=== PATIENT | female | born 1960 | race Caucasian/White ===

== ENCOUNTER 2016-12-11 14:11 | Emergency (ER) | payer SELFPAY ==
[~2016-12-11] VITALS: Ht 165.1 cm; Wt 62.7 kg
[2016-12-11 14:16] VITALS: TEMP 36.5; Ht 165.1 cm; Wt 62.7 kg
--- NOTE | 2016-12-11 15:38 | DIAGNOSTIC IMAGING REPORT ---
CHEST ONE VIEW PORTABLE CLINICAL HISTORY: Cough. COMPARISON STUDY: No previous studies for comparison. FINDINGS: Lung volumes are normal. There is no pneumothorax or pleural effusion. Cardiac size is normal. Mediastinal contours are normal. There is no evidence of pulmonary edema. IMPRESSION: No acute cardiopulmonary findings. Electronically signed by: Vidal Donohue M.D. 12/11/2016 3:37 PM Dictated Date/Time: 12/11/2016 3:37 PM
[2016-12-11 16:03] LABS: BASO ABS # 0.05 K/uL (0-0.2); COMPLETE YES; EOS % 3.7 %; HEMATOCRIT 38.9 % (37-47); IG% 0.2 %; LYMPH % 32.2 %; LYMPH ABS # 1.56 K/uL (1.2-3.4); MEAN CELL VOLUME 87.8 fL (80-100); MEAN CORPUSCULAR HEMOGLOBIN 29.8 pg (25-34); MEAN CORPUSCULAR HGB CONC 33.9 g/dl (32-36); MEAN PLATELET VOLUME 11.3 fL (7.4-10.4); MONO % 9.5 %; NEUT % 53.4 %; PLATELET COUNT 200 K/uL (130-400); RED BLOOD COUNT 4.43 M/uL (4.2-5.4); WHITE BLOOD COUNT 4.85 K/uL (4.8-10.8)
--- NOTE | 2016-12-11 16:14 | EMERGENCY ROOM VISIT NOTE ---
History First contact with patient: 14:49 Chief Complaint: RESPIRATORY PROBLEMS Stated Complaint: PAIN W/BREATHING, TAKING DEEP BREATH, COUGH Nursing Triage Summary: Patient reports productive cough state of small amount of clear sputum, also has headache and sinus congestion. History of pnuemonia Patient sent for evaluation for PE History of Present Illness The patient is a 56 year old female who presents to the Emergency Room via private vehicle with complaints of "pain with breathing, taking deep breath, cough". 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 She states that yesterday afternoon she woke up and it was painful to take a deep breath in the epigastric region in between his shoulder blades. She states that she went to the [facility] walk- in clinic yesterday evening for a chest x-ray was performed and was normal. She states the cough completed performed blood work such as a d-dimer but did not at that time. She states that she woke up her cough was worse today and talk with them and decided to come here for further evaluation for potential pulmonary embolism. She has also had headaches recently but this is not uncommon for her. She notes this is not the worst headache of her life. She denies any pain at rest. The pain is only with a deep breath. She has an innocent heart murmur but no other cardiac history. She did have an episode of chest pain and shortness of breath yesterday. She denies any urinary symptoms, or history, fevers, chills, abdominal pain. Review of Systems A complete 10-point Review of Systems was discussed with the patient, with pertinent positives and negatives listed in the History of Present Illness. All remaining Review of Systems questions can be considered negative unless otherwise specified. Past Medical/Surgical History Tendency of UTI. Family History Cancer, seizure, alcoholism Social History Smoking Status: Never Smoker Alcohol Use: none Social History: Patient lives at home with daughter, denies tobacco but admits to rare alcohol use. Current/Historical Medications No Active Prescriptions or Reported Meds Allergies Coded Allergies: No Known Allergies (Verified , 12/11/16) Physical Exam Vital Signs Date Time Temp Pulse Resp B/P Pulse Ox O2 Delivery O2 Flow Rate FiO2 12/11/16 17:05 62 16 130/86 97 Room Air 12/11/16 15:55 69 18 111/93 98 Room Air 12/11/16 14:25 96 Room Air 12/11/16 14:16 36.5 88 20 148/71 96 Room Air Physical Exam VITAL SIGNS - Vital signs and nursing notes were reviewed. Patient is afebrile , normotensive, non-tachycardic and saturating well on room air 96%. GENERAL -56-year-old female appearing her stated age who is in no acute distress. The patient is talking quite fast. Communicates well with provider and answers questions appropriately. SKIN - Without rashes. HEAD - NC/AT. EYES - PERRL with EOMI bilaterally. Sclera anicteric. Palpebral conjunctiva pink and moist with no injection noted. EARS - No deformities of external structures noted on gross examination bilaterally. No pain elicited with palpation of the tragus bilaterally. External auditory canals without discharge or otorrhea. Tympanic membranes pearly thomas without retraction or bulging. No fluid or purulent material visualized behind the TM. Handle of malleus, umbo, cone of light, pars tensa/ flaccid all easily visualized. NOSE - Midline and without cyanosis. No epistaxis or purulent drainage noted. Septum midline without deviation or septal hematoma noted. MOUTH/OROPHARYNX - Without perioral cyanosis. Buccal mucosa pink and moist and without leukoplakia. Tongue midline with equal elevation of palate bilaterally. No tonsillar hypertrophy, erythema, or exudates noted. Good dentition noted. NECK - Neck with FROM. Supple to palpation. No lymphadenopathy noted. No nuchal rigidity. LUNGS - Chest wall symmetric without accessory muscle use, intercostals retractions, or central cyanosis. Normal vesicular breath sounds CTA B/L. No wheezes, rales, or rhonchi appreciated. CARDIAC - RRR with S1/S2. No murmur, rubs, or gallops appreciated. No reproducible pain on palpation in the chest or back. ABDOMEN - Abdominal contour without pulsations or visible masses. BS normoactive all four quadrants. No tenderness, palpable masses, hepatosplenomegaly, or ascites noted. EXTREMITIES - No clubbing or peripheral cyanosis. No pretibial edema present. + 5/5 strength noted in UE/LE bilaterally. NEUROLOGIC - Cranial nerves II through XII grossly intact. Sensory intact to light touch throughout. PSYCH - A&Ox3 and cooperates fully with examiner. Pt is very pleasant and interacts well with examiner. Medical Decision & Procedures ER Provider Diagnostic Interpretation: CHEST ONE VIEW PORTABLE CLINICAL HISTORY: Cough. COMPARISON STUDY: No previous studies for comparison. FINDINGS: Lung volumes are normal. There is no pneumothorax or pleural effusion. Cardiac size is normal. Mediastinal contours are normal. There is no evidence of pulmonary edema. IMPRESSION: No acute cardiopulmonary findings. Electronically signed by: Vidal Donohue M.D. 12/11/2016 3:37 PM Dictated Date/Time: 12/11/2016 3:37 PM Laboratory Results 12/11/16 15:50 Red Blood Count 4.43, Mean Corpuscular Volume 87.8, Mean Corpuscular Hemoglobin 29.8, Mean Corpuscular Hemoglobin Concent 33.9, Mean Platelet Volume 11.3, Neutrophils (%) (Auto) 53.4, Lymphocytes (%) (Auto) 32.2, Monocytes (%) (Auto) 9.5, Eosinophils (%) (Auto) 3.7, Basophils (%) (Auto) 1.0, Neutrophils # (Auto) 2.59, Lymphocytes # (Auto) 1.56, Monocytes # (Auto) 0.46, Eosinophils # (Auto) 0.18, Basophils # (Auto) 0.05 12/11/16 15:50 Test 12/11/16 15:50 12/11/16 15:55 White Blood Count 4.85 K/uL (4.8-10.8) Red Blood Count 4.43 M/uL (4.2-5.4) Hemoglobin 13.2 g/dL (12.0-16.0) Hematocrit 38.9 % (37-47) Mean Corpuscular Volume 87.8 fL (80-100) Mean Corpuscular Hemoglobin 29.8 pg (25-34) Mean Corpuscular Hemoglobin Concent 33.9 g/dl (32-36) Platelet Count 200 K/uL (130-400) Mean Platelet Volume 11.3 fL (7.4-10.4) Neutrophils (%) (Auto) 53.4 % Lymphocytes (%) (Auto) 32.2 % Monocytes (%) (Auto) 9.5 % Eosinophils (%) (Auto) 3.7 % Basophils (%) (Auto) 1.0 % Neutrophils # (Auto) 2.59 K/uL (1.4-6.5) Lymphocytes # (Auto) 1.56 K/uL (1.2-3.4) Monocytes # (Auto) 0.46 K/uL (0.11-0.59) Eosinophils # (Auto) 0.18 K/uL (0-0.5) Basophils # (Auto) 0.05 K/uL (0-0.2) RDW Standard Deviation 40.9 fL (36.4-46.3) RDW Coefficient of Variation 12.7 % (11.5-14.5) Immature Granulocyte % (Auto) 0.2 % Immature Granulocyte # (Auto) 0.01 K/uL (0.00-0.02) Anion Gap 8.0 mmol/L (3-11) Est Creatinine Clear Calc Drug Dose 52.0 ml/min Estimated GFR () 65.5 Estimated GFR (Non- 56.5 BUN/Creatinine Ratio 14.0 (10-20) Calcium Level 9.3 mg/dl (8.5-10.1) Magnesium Level 2.2 mg/dl (1.8-2.4) Total Bilirubin 0.3 mg/dl (0.2-1) Aspartate Amino Transf (AST/SGOT) 30 U/L (15-37) Alanine Aminotransferase (ALT/SGPT) 39 U/L (12-78) Alkaline Phosphatase 60 U/L (45-117) Total Protein 7.6 gm/dl (6.4-8.2) Albumin 4.0 gm/dl (3.4-5.0) Globulin 3.6 gm/dl (2.5-4.0) Albumin/Globulin Ratio 1.1 (0.9-2) Thyroid Stimulating Hormone (TSH) 0.524 uIu/ml (0.300-4.500) Bedside D-Dimer 178 ng/mlFEU (0-450) Bedside Troponin I 0.000 ng/ml (0-0.045) Medical Decision Patient was seen and evaluated as above. After obtaining a thorough history and physical examination IV access was obtained and a CBC, CMP, serum hCG, TSH, magnesium, d-dimer, point care troponin. Chest 1 view was obtained. Patient most likely has a potential bronchitis. She seemed be exchanging air well as her vital signs were stable here in the emergency department. She states that she was seen yesterday for similar symptoms and they questioned doing a d-dimer and because it did not a potential PE workup could be had today. I believe this is reasonable. In review the patient's blood work, CBC is unremarkable, no leukocytosis or anemia, point care d-dimer is negative, CMP is unremarkable. Point care troponin is 0. TSH is normal. Chest x-ray results as above. No pneumonia. I do believe the patient is likely experiencing congestion secondary to a viral URI process potentially bronchitis. I do not think that an antibiotic is appropriate this point. Patient was educated upon findings and seemed happy with plan of care. She clinically appears well. I encouraged her to follow up with family doctor and I believe this can be CV IM. During her stay EKG revealed normal sinus rhythm rate of 64 bpm. No ectopy or ischemic change. She is to return with any worsening of her symptoms. She was educated upon today's findings, had questions prior to discharge, and was discharged home in good condition. In the evaluation and treatment this patient following differential diagnoses were entertained: [place], PE, bronchitis, pneumonia, among others. Patient appears very otherwise healthy. Vital signs were stable. I do not suspect any acute emergent process. Impression Primary Impression: Inspiratory pain Additional Impression: URI (upper respiratory infection) Departure Information Dispostion Home / Self-Care Condition GOOD Prescriptions No Active Prescriptions or Reported Meds Referrals No Doctor, Assigned (PCP) Patient Instructions My [facility] Additional Instructions You were seen in the emergency department for pain with deep breathing/taking a deep breath. Her blood work shows no sign of infection or anemia. Your d-dimer was within normal limits at 178. The normal is 0-450. You comprehensive metabolic panel did not show any elect to let abnormality, kidney abnormality, liver abnormality or thyroid abnormality. Your EKG and troponin here looked good. Please call [facility] and to schedule a follow-up appointment. Please return to the emergency department with any new/concerning symptoms. Problem Qualifiers Additional Impression:
[2016-12-11 16:26] LABS: CALCIUM 9.3 mg/dl (8.5-10.1); CREATININE 1.1 mg/dl (0.60-1.20); MAGNESIUM 2.2 mg/dl (1.8-2.4); POTASSIUM 3.7 mmol/L (3.5-5.1)
[2016-12-11 16:38] LABS: ALB/GLOB RATIO 1.1 (0.9-2); THYROID STIMULATING HORMONE 0.524 uIu/ml (0.300-4.500)
[2016-12-11 17:05] VITALS: BP 130/86; PULSE 62; O2SAT 97
== END 2016-12-11 17:13 | disposition home or self-care (01) ==
LOC: C.EDB 14:13
DX: J06.9 Acute upper respiratory infection, unspecified (principal)

== ENCOUNTER 2022-10-17 14:31 | Inpatient (IN) ==
[2022-10-17 15:05] LABS: Basophils # (auto) 0.05 K/uL (0-0.2); Basophils % (auto) 0.6 %; Eosinophils # (auto) 0.11 K/uL (0-0.50); Eosinophils % (auto) 1.4 %; Hematocrit (blood only) 37.9 % (34.1-44.9); Hemoglobin 13.1 g/dl (12.0-16.0); Immature Granulocytes # (auto) 0.02 K/uL (0.00-0.02); Immature Granulocytes % (auto) 0.3 %; Lymphocytes # (auto) 2.27 K/uL (1.2-3.4); Lymphocytes % (auto) 29.1 %; Mean Corpuscular Hemoglobin 30.4 pg (25.0-34.0); Mean Corpuscular Hgb Conc 34.6 g/dL (32.0-36.0); Mean Corpuscular Volume 87.9 fL (80.0-100.0); Mean Platelet Volume 12.3 fL (9.4-12.3); Monocytes # (auto) 0.59 K/uL (0.24-0.82); Monocytes % (auto) 7.6 %; Neutrophils # (auto) 4.76 K/uL (1.4-6.5); Platelet Count 233 K/uL (130-400); RDW Coefficient of Variation 12.1 % (11.5-14.5); RDW Standard Deviation 39.2 fL (36.4-46.3); Red Blood Count 4.31 M/uL (3.93-5.22)
[2022-10-17 15:26] LABS: Albumin Globulin Ratio 1.5 (0.9-2); Albumin Level 4.5 gm/dl (3.4-5.0); Bilirubin,Total 0.7 mg/dl (0.2-1.0); Calcium 9.3 mg/dl (8.5-10.1); Creatinine Clr Calc Pharmacy 71.8 ml/min; Est GFR (African American) 101.3 ml/min; Est GFR (Non-African American) 87.4 ml/min; Globulin 3.1 gm/dl (2.5-4.0); Potassium 3.5 mmol/L (3.5-5.1); Total Protein 7.6 gm/dl (6.0-8.3)
[2022-10-17 15:27] LABS: Acetaminophen < 3 ug/ml (10-30); Salicylate < 3.0 mg/dl (3.0-30)
[2022-10-17 15:28] LABS: Appearance Urine Cloudy (Clear); Bacteria Urine Automated 2+ (Negative); Bilirubin Urine Negative (Negative); Blood Urine Negative (Negative); Color Urine Dark Yellow; Glucose Urine UA Negative (Negative); Ketones Urine 2+ (Negative); Leukocyte Esterase Urine 1+ (Negative); Nitrite Urine Positive (Negative); Protein Urine Trace (Negative); Specific Gravity Urine 1.029 (1.000-1.030); Urobilinogen Urine Negative (Negative); WBC Urine Automated >30 /hpf (0-5)
[2022-10-17 16:01] LABS: Amphetamines+Metham, Urine Neg (Neg); Barbiturates, Urine Neg (Neg); Benzodiazepine, Urine Neg (Neg); Cocaine, Urine Neg (Neg); MDMA (Ecstacy), Urine Neg (Neg); Methadone, Urine Neg (Neg); Opiate, Urine Neg (Neg); Phencyclidine, Urine Neg (Neg)
--- NOTE | 2022-10-17 16:10 | Emergency Department Note ---
History of Present Illness General Chief complaint: Mental Health Evaluation Stated complaint: MHID Time Seen by Provider: 10/17/22 15:40 History of Present Illness 62-year-old female presents to the ED for mental health evaluation. The patient states that she has been depressed for years. It recently was worse although since her daughter came on Thursday, she is feeling better. Her daughter is from [place]. The patient, according to the daughter has not been taking care of her self. She had not bathed for weeks prior to her arrival. Her daughter feels that she is minimizing her symptoms. She does have some passive suicidal thoughts but has not acted on them.A 302 petition was filed by can help based on what the daughter had told them. Allergies Allergy/AdvReac Type Severity Reaction Status Date / Time No Known Allergies Allergy Verified 12/11/16 15:16 Past Med/Surg History Social History Smoking Status: Never smoker Feels Safe at Home: Yes Review of Systems A total of 10 systems reviewed and were otherwise negative Physical Exam Vital Signs Vital Signs - 24 hr 10/17/22 14:54 10/17/22 15:01 10/17/22 17:31 Temperature 36.9 C 36.9 C Temperature Source Oral Oral Pulse Rate 126 H Pulse Rate [Finger] 126 H 93 H Pulse Strength [Finger] Normal Respiratory Rate 20 19 19 Respiratory Effort / Characteristics Non-Labored Spontaneous Non-Labored Spontaneous Respiratory Depth Normal Normal Respiratory Pattern Regular Blood Pressure [Left Arm] 145/111 H 144/99 H Blood Pressure Mean [Left Arm] 122 114 Pulse Oximetry 95 100 Oxygen Delivery Method Room Air Room Air Sepsis Recent Fever Within 48 Hours No Sepsis New/Unexplained Change in Mental Status No Sepsis Action Taken by Nursing No Action Required CONSTITUTIONAL/VITAL SIGNS: Reviewed / noted above. GENERAL: Non-toxic in appearance. INTEGUMENTARY: Warm, dry, and [place]. HEAD: Normocephalic. EYES: without scleral icterus or trauma. ENT/OROPHARYNX: clear and moist. LYMPHADENOPATHY/NECK: Is supple without lymphadenopathy or meningismus. RESPIRATORY: Clear to auscultation bilaterally. No increased work of breathing. CARDIOVASCULAR: Regular rate and rhythm. GI/ABDOMEN: Soft and nontender. No organomegaly or pulsatile mass. EXTREMITIES: Warm and well perfused. BACK: No CVA tenderness. NEUROLOGICAL: Intact without focal deficits. PSYCHIATRIC: normal affect. MUSCULOSKELETAL: Normally developed with good muscle tone. TRIAGE NURSING DOCUMENTATION REVIEWED. Medical Decision Making Differential Diagnosis Differential includes toxic ingestions, self-mutilation, suicidal ideation, suicide attempt, depression. Medical Records Attestation: I reviewed the patient's medical records. Home Medications Current Medication List: was personally reviewed by me Laboratory Data Attestation: I reviewed the patient's lab results. Result diagrams: 10/17/22 14:49 10/17/22 14:49 Lab Results 10/17/22 10/17/22 10/17/22 Range/Units 14:33 14:33 14:49 WBC 7.80 (4.8-10.8) K/ul RBC 4.31 (3.93-5.22) M/uL Hgb 13.1 (12.0-16.0) g/dl Hct 37.9 (34.1-44.9) % MCV 87.9 (80.0-100.0) fL MCH 30.4 (25.0-34.0) pg MCHC 34.6 (32.0-36.0) g/dL RDW Std Deviation 39.2 (36.4-46.3) fL RDW Coeff of Unique 12.1 (11.5-14.5) % Plt Count 233 (130-400) K/uL MPV 12.3 (9.4-12.3) fL Immature Gran % (Auto) 0.3 % Neut % (Auto) 61.0 % Lymph % (Auto) 29.1 % [place] % (Auto) 7.6 % Eos % (Auto) 1.4 % Baso % (Auto) 0.6 % Neut # (Auto) 4.76 (1.4-6.5) K/uL Lymph # (Auto) 2.27 (1.2-3.4) K/uL [place] # (Auto) 0.59 (0.24-0.82) K/uL Eos # (Auto) 0.11 (0-0.50) K/uL Baso # (Auto) 0.05 (0-0.2) K/uL Immature Gran # (Auto) 0.02 (0.00-0.02) K/uL Sodium (136-145) mmol/L Potassium (3.5-5.1) mmol/L Chloride (98-107) mmol/L Carbon Dioxide (21-32) mmol/L Anion Gap (3-11) BUN (6-23) mg/dl Creatinine (0.6-1.2) mg/dl Est Cr Clr Drug Dosing ml/min Est GFR ( Amer) ml/min Est GFR (Non-Af Amer) ml/min BUN/Creatinine Ratio (10-20) Glucose (70-99(Fasting)) mg/dl Calcium (8.5-10.1) mg/dl Total Bilirubin (0.2-1.0) mg/dl AST (13-39) U/L ALT (7-52) U/L Alkaline Phosphatase (34-104) U/L Total Protein (6.0-8.3) gm/dl Albumin (3.4-5.0) gm/dl Globulin (2.5-4.0) gm/dl Albumin/Globulin Ratio (0.9-2) TSH (0.300-4.500) uIu/ml Urine Color Dark Yellow Urine Appearance Cloudy A (Clear) Urine pH 5.0 (4.5-7.5) Ur Specific [place] 1.029 (1.000-1.030) Urine Protein Trace H (Negative) Urine Glucose (UA) Negative (Negative) Urine Ketones 2+ H (Negative) Urine Blood Negative (Negative) Urine Nitrite Positive A (Negative) Urine Bilirubin Negative (Negative) Urine Urobilinogen Negative (Negative) Ur Leukocyte Esterase 1+ H (Negative) Urine WBC (Auto) >30 H (0-5) /hpf Urine RBC (Auto) 5-10 H (0-4) /hpf U Hyaline Cast (Auto) 1-5 (0-5) /lpf U Epithel Cells (Auto) 10-20 H (0-5) /lpf Urine Bacteria (Auto) 2+ H (Negative) Urine Crystals Not Reportable Calcium Oxalate Crystal Present A (None Prsent) Salicylates (3.0-30) mg/dl Urine Opiates Screen Neg (Neg) Ur Methadone, Qual Neg (Neg) Acetaminophen (10-30) ug/ml Urine Barbiturates Neg (Neg) Ur Phencyclidine (PCP) Neg (Neg) U Amphetamin/Meth Scrn Neg (Neg) MDMA (Ecstasy) Screen Neg (Neg) U Benzodiazepines Scrn Neg (Neg) Ur Cocaine Metabolite Neg (Neg) U Marijuana (THC) Screen Neg (Neg) Ethyl Alcohol mg/dL (<10.0) mg/dl SARS-CoV-2, RNA, NAAT (NEGATIVE) 10/17/22 10/17/22 10/17/22 Range/Units 14:49 14:49 14:49 WBC (4.8-10.8) K/ul RBC (3.93-5.22) M/uL Hgb (12.0-16.0) g/dl Hct (34.1-44.9) % MCV (80.0-100.0) fL MCH (25.0-34.0) pg MCHC (32.0-36.0) g/dL RDW Std Deviation (36.4-46.3) fL RDW Coeff of Unique (11.5-14.5) % Plt Count (130-400) K/uL MPV (9.4-12.3) fL Immature Gran % (Auto) % Neut % (Auto) % Lymph % (Auto) % [place] % (Auto) % Eos % (Auto) % Baso % (Auto) % Neut # (Auto) (1.4-6.5) K/uL Lymph # (Auto) (1.2-3.4) K/uL [place] # (Auto) (0.24-0.82) K/uL Eos # (Auto) (0-0.50) K/uL Baso # (Auto) (0-0.2) K/uL Immature Gran # (Auto) (0.00-0.02) K/uL Sodium 139 (136-145) mmol/L Potassium 3.5 (3.5-5.1) mmol/L Chloride 104 (98-107) mmol/L Carbon Dioxide 24 (21-32) mmol/L Anion Gap 11 (3-11) BUN 17 (6-23) mg/dl Creatinine 0.74 (0.6-1.2) mg/dl Est Cr Clr Drug Dosing 71.8 ml/min Est GFR ( Amer) 101.3 ml/min Est GFR (Non-Af Amer) 87.4 ml/min BUN/Creatinine Ratio 23.0 H (10-20) Glucose 99 (70-99(Fasting)) mg/dl Calcium 9.3 (8.5-10.1) mg/dl Total Bilirubin 0.7 (0.2-1.0) mg/dl AST 42 H (13-39) U/L ALT 51 (7-52) U/L Alkaline Phosphatase 91 (34-104) U/L Total Protein 7.6 (6.0-8.3) gm/dl Albumin 4.5 (3.4-5.0) gm/dl Globulin 3.1 (2.5-4.0) gm/dl Albumin/Globulin Ratio 1.5 (0.9-2) TSH 0.844 (0.300-4.500) uIu/ml Urine Color Urine Appearance (Clear) Urine pH (4.5-7.5) Ur Specific [place] (1.000-1.030) Urine Protein (Negative) Urine Glucose (UA) (Negative) Urine Ketones (Negative) Urine Blood (Negative) Urine Nitrite (Negative) Urine Bilirubin (Negative) Urine Urobilinogen (Negative) Ur Leukocyte Esterase (Negative) Urine WBC (Auto) (0-5) /hpf Urine RBC (Auto) (0-4) /hpf U Hyaline Cast (Auto) (0-5) /lpf U Epithel Cells (Auto) (0-5) /lpf Urine Bacteria (Auto) (Negative) Urine Crystals Calcium Oxalate Crystal (None Prsent) Salicylates < 3.0 L (3.0-30) mg/dl Urine Opiates Screen (Neg) Ur Methadone, Qual (Neg) Acetaminophen < 3 L (10-30) ug/ml Urine Barbiturates (Neg) Ur Phencyclidine (PCP) (Neg) U Amphetamin/Meth Scrn (Neg) MDMA (Ecstasy) Screen (Neg) U Benzodiazepines Scrn (Neg) Ur Cocaine Metabolite (Neg) U Marijuana (THC) Screen (Neg) Ethyl Alcohol mg/dL (<10.0) mg/dl SARS-CoV-2, RNA, NAAT (NEGATIVE) 10/17/22 10/17/22 Range/Units 14:49 14:49 WBC (4.8-10.8) K/ul RBC (3.93-5.22) M/uL Hgb (12.0-16.0) g/dl Hct (34.1-44.9) % MCV (80.0-100.0) fL MCH (25.0-34.0) pg MCHC (32.0-36.0) g/dL RDW Std Deviation (36.4-46.3) fL RDW Coeff of Unique (11.5-14.5) % Plt Count (130-400) K/uL MPV (9.4-12.3) fL Immature Gran % (Auto) % Neut % (Auto) % Lymph % (Auto) % [place] % (Auto) % Eos % (Auto) % Baso % (Auto) % Neut # (Auto) (1.4-6.5) K/uL Lymph # (Auto) (1.2-3.4) K/uL [place] # (Auto) (0.24-0.82) K/uL Eos # (Auto) (0-0.50) K/uL Baso # (Auto) (0-0.2) K/uL Immature Gran # (Auto) (0.00-0.02) K/uL Sodium (136-145) mmol/L Potassium (3.5-5.1) mmol/L Chloride (98-107) mmol/L Carbon Dioxide (21-32) mmol/L Anion Gap (3-11) BUN (6-23) mg/dl Creatinine (0.6-1.2) mg/dl Est Cr Clr Drug Dosing ml/min Est GFR ( Amer) ml/min Est GFR (Non-Af Amer) ml/min BUN/Creatinine Ratio (10-20) Glucose (70-99(Fasting)) mg/dl Calcium (8.5-10.1) mg/dl Total Bilirubin (0.2-1.0) mg/dl AST (13-39) U/L ALT (7-52) U/L Alkaline Phosphatase (34-104) U/L Total Protein (6.0-8.3) gm/dl Albumin (3.4-5.0) gm/dl Globulin (2.5-4.0) gm/dl Albumin/Globulin Ratio (0.9-2) TSH (0.300-4.500) uIu/ml Urine Color Urine Appearance (Clear) Urine pH (4.5-7.5) Ur Specific [place] (1.000-1.030) Urine Protein (Negative) Urine Glucose (UA) (Negative) Urine Ketones (Negative) Urine Blood (Negative) Urine Nitrite (Negative) Urine Bilirubin (Negative) Urine Urobilinogen (Negative) Ur Leukocyte Esterase (Negative) Urine WBC (Auto) (0-5) /hpf Urine RBC (Auto) (0-4) /hpf U Hyaline Cast (Auto) (0-5) /lpf U Epithel Cells (Auto) (0-5) /lpf Urine Bacteria (Auto) (Negative) Urine Crystals Calcium Oxalate Crystal (None Prsent) Salicylates (3.0-30) mg/dl Urine Opiates Screen (Neg) Ur Methadone, Qual (Neg) Acetaminophen (10-30) ug/ml Urine Barbiturates (Neg) Ur Phencyclidine (PCP) (Neg) U Amphetamin/Meth Scrn (Neg) MDMA (Ecstasy) Screen (Neg) U Benzodiazepines Scrn (Neg) Ur Cocaine Metabolite (Neg) U Marijuana (THC) Screen (Neg) Ethyl Alcohol mg/dL < 10.0 (<10.0) mg/dl SARS-CoV-2, RNA, NAAT NEGATIVE (NEGATIVE) MDM Narrative 62-year-old female presents for psychiatric valuation based on a petition through the daughter, who is visiting from [place]. Patient does not report any active suicidal ideation or attempts to hurt herself.She is medically cleared. She was accepted to [facility]. Impression & Plan Depression Discharge Plan Visit Data Chief Complaint: Mental Health Evaluation Stated Complaint: MHID ED Provider: Blas Cole Discharge Problem: Depression Patient Disposition: Transfer Behavioral Health Fac Forms Stand Alone Forms: [facility], Suicide Prevention Resources Referrals Referrals: PCP,NO [Primary Care Provider] -
[2022-10-17 17:03] LABS: Calcium Oxalate Crystals Urine Present (None Prsent)
[2022-10-17] MEDS ORDERED: SODIUM CHLORIDE 0.65% NA SOLN 45 ML (OCEAN) PRN (18:47)
[2022-10-17] MEDS ORDERED: MAGNESIUM HYDROXIDE SUSP 30 ML UDC PO PRN (18:47)
[2022-10-17] MEDS ORDERED: hydrOXYzine HCl 25 MG TAB PO PRN ×2 (18:47)
[2022-10-17] MEDS ORDERED: ACETAMINOPHEN 325 MG TAB PO PRN (18:47)
[2022-10-17] MEDS ORDERED: ALUMINUM/MAGNESIUM SUSP 30 ML UDC PO PRN (18:47)
[2022-10-17] MEDS ORDERED: BISMUTH SUBSALICYLATE LIQD 236 ML PO PRN (18:47)
--- NOTE | 2022-10-18 13:48 | History & Physical ---
Date of Service October 18, 2022 Impression / Recommendations Impression 62 yo female with 2 prior episodes of at least mild depression presents with 2 year decline in overall functioning, currently presents with vegetative symptoms and poor self care which are to a degree that could suggest psychotic features (none on exam) or disorganization related to cognitive disorder or pseudodementia (though not slowed). Bipolar depression remains in differential. (1) Depression: Plan The patient was admitted to the [facility] ([facility] mental health unit) on q15 min checks (behavioral with suicide precautions) for safety. The patient will participate in group, recreational, and milieu therapies and will be offered additional individual and family sessions as clinically appropriate. Risks/benefits/alternatives reviewed re: antidepressants for the treatment of depression and/or anxiety. The patient agreed to a trial of Lexapro 5 mg. Will check vitamin B12, D, folate levels as well as fasting metabolic labs given no recent PCP and possible need for Abilify augmentation depending on initial response to SSRI. Inventory Assets Strengths: intelligent, voluntary Needs: outpatient services, cognitive assessment Suicide Risk Level Suicide Risk Level: Moderate (q15 min suicide checks) Suicide Risk Level Comments: patient denies SI but is admit for severe depression and presents as disorganized. Risk Factors Assessment : Yes Do You Have Access To A Gun?: No Substance Use Disorders: No Previous Attempt: No Previous Psychiatric Hospitalization: No Protective Factors Assessment Employed: No Supportive Family: Yes Psychiatric History Identifying Data ALEXEY LEE is a 62-year-old F who currently lives in [place], and was admitted on 10/17/22 18:47 on a 201 voluntary commitment for depression and poor self care. Chief Complaint "I didn't expect to be admitted because I'm not, you know". patient gestured as if slitting wrist indicating that she was not suicidal. 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 Well summarized by sw note: Patient stated for a while she was collecting stimulus checks and unemployment, but patient reports she currently doesn't have "much of an incom e." Pt could not elaborate on how she has been paying her bills. She states she has a "male friend" who lives in [place] and occasionally comes down to bring her groceries, and he will be taking care of her cats while she is in the hospital. She also has a daughter who flew in from [place] to help her, and a sister who lives in [place] who came into town as well. Patient reports she has not been showering or brushing her teeth for months at a time, rarely changes out of pajamas/robe, and has not been leaving the house at all. Patient states she has virtually no appetite but then will eat a lot of chips and soda later in the day. She has not been engaging in anything that used to bring her harpal, such as going to a cafe, gardening, etc. Patient reports having limited local support, although she has 5 children (she states she is close with some of them but she is more estranged from her younger daughters, after her divorce about 15 years ago). She had an older dog who a couple of weeks ago, but patient states this was a relief because the dog was difficult for her to care for. She has a cat whose companionship she enjoys. Patient states her daughter helped her get medicaid recently, but she has no outpatient providers. Her daughter has talked with her about selling her house to help her pay her bills. The timeline of symptoms is confirmed by patient's daughter. It should be noted that another daughter used to live in [facility] but relocated to [facility] about 1-1.5 years ago. The patient had marked difficulty describing how iADLs get completed with her level of thought disorganization. She has had difficulty with racing thoughts during 2 previous periods of depression but denied any history of clement virginie other than elevated mood following her divorce. She had difficulty providing dates/number of years for certain aspects of history. Daughter reported to nursing that the house is in a poor state and patient indicated her daughter had taken her to an Air BnB. She does not identify her male friend as a partner and reports being estranged from her younger children, perhaps alluding to blaming self around the divorce (?infidelity). Past Psychiatric History Previous Psych History: no formal Current Psychiatric Diagnosis: MDD Outpatient Services: none Previous Psych Admissions: none Do You Have Access To A Gun?: No History of Previous Suicide Attempt: No Past Medication Trials: took 1 or "a few" doses of an antidepressant years ago and stopped due to res istance Allergies Allergy/AdvReac Type Severity Reaction Status Date / Time No Known Allergies Allergy Verified 12/11/16 15:16 Family History Family History of: Depression Family Mental Health History Comment: pt reports having a couple of other depressive episodes in the past, but this episode is worse/has lasted longer. A couple daughters also have struggled with depression. Father of alcoholism, mother was hospitalized for depression as well Alcohol History Hx of Alcohol Use Over the Past 12 Months: No AUDIT Total Score: 0 Smoking Use Have You Smoked or Used Tobacco Products in the Last 30 Days: No Smoking Status: Never smoker Substance History Hx of Prescription Med Misuse Over the Past 12 Months: No Hx of Over the Counter Med Misuse Over the Past 12 Months: No Hx of Inhalent Misuse Over the Past 12 Months: No Hx of Organic Substance Use Over the Past 12 Months: No Hx of Illegal Substances/Street Drug Use Over Past 12 Months: No Problems as a Result of Past Substance Use: None Identified Personal History Living Arrangements: Home Highest Grade Completed: College Highest Grade Completed Comment: completed 4 years of college at [employer], studied early education Employment Status: Unemployed Marital Status: Number Of Children: 5 Beliefs That Will Affect Care: None Current Legal Problems: No Psychological Trauma History Comment: did not report a specific trauma Patient History Medical History (Updated 10/18/22 @ 14:14 by Sandy Bonner MD) No active medical problems Social History Smoking Status: Never smoker Preferred Language: Korean Communication Ability: Effective Mapping Pilot Required: No Beliefs That Will Affect Care: None Feels Safe at Home: Yes Assistive Devices: Glasses Review of Systems Review of Systems: All systems reviewed & are unremarkable except as noted in HPI & below Physical Exam Psychiatric: Orientation: alert and oriented x 3 Apperance: appropriately dressed and appropriately groomed Eye Contact: good eye contact Motor Behavior: no abnormal motor movements Speech: + abnormal rate/rhythm/volume of speech (hyperverbal but not pressured) Affect: + depressed affect Mood: + depressed mood Thought Process: + circumstantial thought process Thought Content: reality based without delusions Suicidal Thoughts: denies suicidal thoughts Homicidal Thoughts: denies homicidal thoughts Hallucinations: no auditory hallucinations and no visual hallucinations Cognition: attention grossly intact and language grossly intact Estimated Intelligence: consistent with education level Insight: + limited insight Judgement: + limited judgement Vital Signs (Past 24 Hours): Last Vital Signs Temp 36.8 C 10/18/22 06:27 Pulse 91 H 10/18/22 06:27 Resp 16 10/18/22 06:27 BP 113/79 10/18/22 06:27 Pulse Ox 98 10/17/22 19:22 O2 Del Method 10/17/22 19:22 Exam Statement: A physical exam was performed in the ED by Dr. Adair for the purposes of medical clearance. I accept that physical as correct and adequate for the purposes of the inpatient physical exam. Results & Data ([facility]) Laboratory Results Laboratory Results - last 24 hr 10/17/22 10/17/22 10/17/22 14:33 14:33 14:49 WBC 7.80 RBC 4.31 Hgb 13.1 Hct 37.9 MCV 87.9 MCH 30.4 MCHC 34.6 RDW Std Deviation 39.2 RDW Coeff of Unique 12.1 Plt Count 233 MPV 12.3 Immature Gran % (Auto) 0.3 Neut % (Auto) 61.0 Lymph % (Auto) 29.1 Bell % (Auto) 7.6 Eos % (Auto) 1.4 Baso % (Auto) 0.6 Neut # (Auto) 4.76 Lymph # (Auto) 2.27 Bell # (Auto) 0.59 Eos # (Auto) 0.11 Baso # (Auto) 0.05 Immature Gran # (Auto) 0.02 Sodium Potassium Chloride Carbon Dioxide Anion Gap BUN Creatinine Est Cr Clr Drug Dosing Est GFR ( Amer) Est GFR (Non-Af Amer) BUN/Creatinine Ratio Glucose Calcium Total Bilirubin AST ALT Alkaline Phosphatase Total Protein Albumin Globulin Albumin/Globulin Ratio TSH Urine Color Dark Yellow Urine Appearance Cloudy A Urine pH 5.0 Ur Specific [place] 1.029 Urine Protein Trace H Urine Glucose (UA) Negative Urine Ketones 2+ H Urine Blood Negative Urine Nitrite Positive A Urine Bilirubin Negative Urine Urobilinogen Negative Ur Leukocyte Esterase 1+ H Urine WBC (Auto) >30 H Urine RBC (Auto) 5-10 H U Hyaline Cast (Auto) 1-5 U Epithel Cells (Auto) 10-20 H Urine Bacteria (Auto) 2+ H Urine Crystals Not Reportable Calcium Oxalate Crystal Present A Salicylates Urine Opiates Screen Neg Ur Methadone, Qual Neg Acetaminophen Urine Barbiturates Neg Ur Phencyclidine (PCP) Neg U Amphetamin/Meth Scrn Neg MDMA (Ecstasy) Screen Neg U Benzodiazepines Scrn Neg Ur Cocaine Metabolite Neg U Marijuana (THC) Screen Neg Ethyl Alcohol mg/dL SARS-CoV-2, RNA, NAAT 10/17/22 10/17/22 10/17/22 14:49 14:49 14:49 WBC RBC Hgb Hct MCV MCH MCHC RDW Std Deviation RDW Coeff of Unique Plt Count MPV Immature Gran % (Auto) Neut % (Auto) Lymph % (Auto) Bell % (Auto) Eos % (Auto) Baso % (Auto) Neut # (Auto) Lymph # (Auto) Bell # (Auto) Eos # (Auto) Baso # (Auto) Immature Gran # (Auto) Sodium 139 Potassium 3.5 Chloride 104 Carbon Dioxide 24 Anion Gap 11 BUN 17 Creatinine 0.74 Est Cr Clr Drug Dosing 71.8 Est GFR ( Amer) 101.3 Est GFR (Non-Af Amer) 87.4 BUN/Creatinine Ratio 23.0 H Glucose 99 Calcium 9.3 Total Bilirubin 0.7 AST 42 H ALT 51 Alkaline Phosphatase 91 Total Protein 7.6 Albumin 4.5 Globulin 3.1 Albumin/Globulin Ratio 1.5 TSH 0.844 Urine Color Urine Appearance Urine pH Ur Specific [place] Urine Protein Urine Glucose (UA) Urine Ketones Urine Blood Urine Nitrite Urine Bilirubin Urine Urobilinogen Ur Leukocyte Esterase Urine WBC (Auto) Urine RBC (Auto) U Hyaline Cast (Auto) U Epithel Cells (Auto) Urine Bacteria (Auto) Urine Crystals Calcium Oxalate Crystal Salicylates < 3.0 L Urine Opiates Screen Ur Methadone, Qual Acetaminophen < 3 L Urine Barbiturates Ur Phencyclidine (PCP) U Amphetamin/Meth Scrn MDMA (Ecstasy) Screen U Benzodiazepines Scrn Ur Cocaine Metabolite U Marijuana (THC) Screen Ethyl Alcohol mg/dL SARS-CoV-2, RNA, NAAT 10/17/22 10/17/22 14:49 14:49 WBC RBC Hgb Hct MCV MCH MCHC RDW Std Deviation RDW Coeff of Unique Plt Count MPV Immature Gran % (Auto) Neut % (Auto) Lymph % (Auto) Bell % (Auto) Eos % (Auto) Baso % (Auto) Neut # (Auto) Lymph # (Auto) Bell # (Auto) Eos # (Auto) Baso # (Auto) Immature Gran # (Auto) Sodium Potassium Chloride Carbon Dioxide Anion Gap BUN Creatinine Est Cr Clr Drug Dosing Est GFR ( Amer) Est GFR (Non-Af Amer) BUN/Creatinine Ratio Glucose Calcium Total Bilirubin AST ALT Alkaline Phosphatase Total Protein Albumin Globulin Albumin/Globulin Ratio TSH Urine Color Urine Appearance Urine pH Ur Specific [place]ouch Urine Protein Urine Glucose (UA) Urine Ketones Urine Blood Urine Nitrite Urine Bilirubin Urine Urobilinogen Ur Leukocyte Esterase Urine WBC (Auto) Urine RBC (Auto) U Hyaline Cast (Auto) U Epithel Cells (Auto) Urine Bacteria (Auto) Urine Crystals Calcium Oxalate Crystal Salicylates Urine Opiates Screen Ur Methadone, Qual Acetaminophen Urine Barbiturates Ur Phencyclidine (PCP) U Amphetamin/Meth Scrn MDMA (Ecstasy) Screen U Benzodiazepines Scrn Ur Cocaine Metabolite U Marijuana (THC) Screen Ethyl Alcohol mg/dL < 10.0 SARS-CoV-2, RNA, NAAT NEGATIVE Current Inpatient Medications Current Inpatient Medications: Current Inpatient Medications Acetaminophen (Acetaminophen 325 Mg Tab) 650 mg PO Q4H PRN PRN Reason: Headache or Minor Fever Stop: 11/16/22 18:46 Al Hydrox/Mg Hydrox/Simethicone (Aluminum/Magnesium Susp 30 Ml Udc) 30 ml PO Q4H PRN PRN Reason: GI Upset Stop: 11/16/22 18:46 Bismuth Subsalicylate (Bismuth Subsalicylate Liqd 236 Ml) 15 ml PO PRN PRN PRN Reason: Loose Stool Stop: 11/16/22 18:46 Escitalopram Oxalate (Escitalopram Oxalate 10 Mg Tab) 5 mg PO QAM MATTHEW Stop: 11/17/22 13:59 Hydroxyzine HCl (Hydroxyzine Hcl 25 Mg Tab) 50 mg PO HSZ PRN PRN Reason: Insomnia Stop: 11/16/22 18:46 Hydroxyzine HCl (Hydroxyzine Hcl 25 Mg Tab) 25 mg PO Q4H PRN PRN Reason: Anxiety Stop: 11/16/22 18:46 Magnesium Hydroxide (Magnesium Hydroxide Susp 30 Ml Udc) 30 ml PO DAILY PRN PRN Reason: Constipation Stop: 11/16/22 18:46 Sodium Chloride (Sodium Chloride 0.65% Na Soln 45 Ml ([place])) 1 - 2 sprays NA PRN PRN PRN Reason: Nasal Dryness/Congestion Stop: 11/16/22 18:46
[2022-10-18] MEDS: ESCITALOPRAM OXALATE 10 MG TAB PO SCH (15:01)
[2022-10-19 08:34] LABS: Chol HDL Ratio 5.1 (0-5)
[2022-10-19] MEDS: ESCITALOPRAM OXALATE 10 MG TAB PO SCH (08:56)
[2022-10-19 09:01] LABS: Vitamin D, 25 Hydrox 8.7 ng/ml (30-100)
--- NOTE | 2022-10-19 16:56 | Psychiatric Progress Note ---
Date of Service October 19, 2022 Impression / Recommendations Impression 62 yo female with 2 prior episodes of at least mild depression presents with 2 year decline in overall functioning, currently presents with vegetative symptoms and poor self care which are to a degree that could suggest psychotic features (none on exam) or disorganization related to cognitive disorder or pseudodementia (though not slowed). Bipolar depression remains in differential. 10/19/22: improving (1) Depression: Plan 10/19/22: PCP f/u, start Vitamin D 6000 IU for 4-8 weeks then 1500 at discretion of outpatient provider, patient would rather meet with nutrition then start lipid lowering agent. 10/18/22: The patient was admitted to the [facility] ([facility] mental health unit) on q15 min checks (behavioral with suicide precautions) for safety. The patient will participate in group, recreational, and milieu therapies and will be offered additional individual and family sessions as clinically appropriate. Risks/benefits/alternatives reviewed re: antidepressants for the treatment of depression and/or anxiety. The patient agreed to a trial of Lexapro 5 mg. Will check vitamin B12, D, folate levels as well as fasting metabolic labs given no recent PCP and possible need for Abilify augmentation depending on initial response to SSRI. Inventory Assets Strengths: intelligent, voluntary Needs: outpatient services, cognitive assessment Suicide Risk Level Suicide Risk Level: Moderate (q15 min suicide checks) Suicide Risk Level Comments: patient denies SI but is admit for severe depression and presents as disorganize d. Risk Factors Assessment : Yes Do You Have Access To A Gun?: No Substance Use Disorders: No Previous Attempt: No Previous Psychiatric Hospitalization: No Protective Factors Assessment Employed: No Supportive Family: Yes Interval History Identifying Information ALEXEY LEE is a 62-year-old F who currently lives in [place], and was admitted on 10/17/22 18:47 on a 201 voluntary commitment for depression and poor self care. Chief Complaint "I wanted to know a few things, mainly worried about my cat if I'm staying awhile". Review of Systems Sleep Information Total Hours of Sleep: 6.5 Meal Information Percent Meal Consumed - Breakfast: 100 Percent Meal Consumed - Lunch: 100 Percent Meal Consumed - Dinner: 95 Subjective Subjective Patient was seen & assessed and interval progress reviewed with nursing and social work. Presents as scattered due to anxiety, daughter has confirmed executive functioning issues at baseline and has always relied on others for paying bills, etc so perhaps not progressive or related to depression after all. No hx of virginie. Sleeping. No restlessness and speech is baseline fast talker. She is eating and attending to ADLs. Tolerating first doses of Lexapro. Reviewed her lipid panel, she will f/u with PCP and feels it's related to her recent diet. Discussed vitamin D suppl. Physical Exam Psychiatric Orientation: alert and oriented x 3 Apperance: appropriately dressed and appropriately groomed Eye Contact: good eye contact Motor Behavior: no abnormal motor movements Speech: + abnormal rate/rhythm/volume of speech (hyperverbal but not pressured) Affect: euthymic affect Mood: + depressed mood Thought Process: + circumstantial thought process Thought Content: reality based without delusions Suicidal Thoughts: denies suicidal thoughts Homicidal Thoughts: denies homicidal thoughts Hallucinations: no auditory hallucinations and no visual hallucinations Cognition: attention grossly intact and language grossly intact Estimated Intelligence: consistent with education level Insight: + limited insight Judgement: + limited judgement Vital Signs (Past 24 Hours) Last Vital Signs Temp 36.5 C 10/19/22 06:36 Pulse 76 10/19/22 06:37 Resp 16 10/19/22 06:36 BP 112/75 10/19/22 06:37 Pulse Ox 98 10/17/22 19:22 O2 Del Method 10/17/22 19:22 Results & Data ([facility]) Laboratory Results Laboratory Results - last 24 hr 10/19/22 10/19/22 07:29 07:29 Fasting Glucose 90 Triglycerides 92 Cholesterol 293 H LDL Cholesterol, Calc 218 VLDL Cholesterol, Calc 18 HDL Cholesterol 57 Cholesterol/HDL Ratio 5.1 H Vitamin B12 224 25-OH Vitamin D Total 8.7 L Folate 12.00 Current Inpatient Medications Current Inpatient Medications: Current Inpatient Medications Acetaminophen (Acetaminophen 325 Mg Tab) 650 mg PO Q4H PRN PRN Reason: Headache or Minor Fever Stop: 11/16/22 18:46 Al Hydrox/Mg Hydrox/Simethicone (Aluminum/Magnesium Susp 30 Ml Udc) 30 ml PO Q4H PRN PRN Reason: GI Upset Stop: 11/16/22 18:46 Bismuth Subsalicylate (Bismuth Subsalicylate Liqd 236 Ml) 15 ml PO PRN PRN PRN Reason: Loose Stool Stop: 11/16/22 18:46 Escitalopram Oxalate (Escitalopram Oxalate 10 Mg Tab) 5 mg PO QAM MATTHEW Stop: 11/17/22 13:59 Last Admin: 10/19/22 08:56 Dose: 5 mg Hydroxyzine HCl (Hydroxyzine Hcl 25 Mg Tab) 50 mg PO HSZ PRN PRN Reason: Insomnia Stop: 11/16/22 18:46 Hydroxyzine HCl (Hydroxyzine Hcl 25 Mg Tab) 25 mg PO Q4H PRN PRN Reason: Anxiety Stop: 11/16/22 18:46 Magnesium Hydroxide (Magnesium Hydroxide Susp 30 Ml Udc) 30 ml PO DAILY PRN PRN Reason: Constipation Stop: 11/16/22 18:46 Sodium Chloride (Sodium Chloride 0.65% Na Soln 45 Ml ([place])) 1 - 2 sprays NA PRN PRN PRN Reason: Nasal Dryness/Congestion Stop: 11/16/22 18:46
[2022-10-19] MEDS: CHOLECALCIFEROL 1,000 UNITS 25 MCG TAB PO SCH (17:38)
--- NOTE | 2022-10-19 20:43 | Electrocardiogram Report ---
Test Reason : Blood Pressure : / mmHG Vent. Rate : 103 BPM Atrial Rate : 103 BPM P-R Int : 136 ms QRS Dur : 078 ms QT Int : 352 ms P-R-T Axes : 067 081 038 degrees QTc Int : 461 ms Sinus tachycardia Nonspecific ST abnormality Abnormal ECG When compared with ECG of 11-DEC-2016 15:51, Vent. rate has increased BY 39 BPM Confirmed by Franklin Hampton ([id number]) on 10/19/2022 8:43:20 PM Referred By: REFERRED SELF Confirmed By:Franklin Hampton
[2022-10-20] MEDS: CHOLECALCIFEROL 1,000 UNITS 25 MCG TAB PO SCH (08:50)
[2022-10-20] MEDS: ESCITALOPRAM OXALATE 10 MG TAB PO SCH (08:50)
--- NOTE | 2022-10-20 13:42 | Psychiatric Progress Note ---
Date of Service October 20, 2022 Impression / Recommendations Impression 62 yo female with 2 prior episodes of at least mild depression presents with 2 year decline in overall functioning, currently presents with vegetative symptoms and poor self care which are to a degree that could suggest psychotic features (none on exam) or disorganization related to cognitive disorder or pseudodementia (though not slowed). Bipolar depression remains in differential. 10/20/22: improving, tolerating SSRI (1) Depression: Plan 10/20/22: continue current medication and treatment plan. 10/19/22: PCP f/u, start Vitamin D 6000 IU for 4-8 weeks then 1500 at discretion of outpatient provider, patient would rather meet with nutrition then start lipid lowering agent. 10/18/22: The patient was admitted to the [facility] ([facility] unit) on q15 min checks (behavioral with suicide precautions) for safety. The patient will participate in group, recreational, and milieu therapies and will be offered additional individual and family sessions as clinically appropriate. Risks/benefits/alternatives reviewed re: antidepressants for the treatment of depression and/or anxiety. The patient agreed to a trial of Lexapro 5 mg. Will check vitamin B12, D, folate levels as well as fasting metabolic labs given no recent PCP and possible need for Abilify augmentation depending on initial response to SSRI. Inventory Assets Strengths: intelligent, voluntary Needs: outpatient services, cognitive assessment Suicide Risk Level Suicide Risk Level: Moderate (q15 min suicide checks) Suicide Risk Level Comments: patient denies SI but is admit for severe depression and presents as disorganized. Risk Factors Assessment : Yes Do You Have Access To A Gun?: No Substance Use Disorders: No Previous Attempt: No Previous Psychiatric Hospitalization: No Protective Factors Assessment Employed: No Supportive Family: Yes Interval History Identifying Information ALEXEY LEE is a 62-year-old F who currently lives in [place], and was admitted on 10/17/22 18:47 on a 201 voluntary commitment for depression and poor self care. Chief Complaint "i realized I want to be on a routine, get organized, I feel like doing it now". Review of Systems Sleep Information Total Hours of Sleep: 5.5 Meal Information Percent Meal Consumed - Breakfast: 100 Percent Meal Consumed - Lunch: 80 Percent Meal Consumed - Dinner: 90 Subjective Subjective Patient was seen & assessed and interval progress reviewed with treatment team. Patient has been journaling and responding to structure of groups. She alluded to her home being in disarray and discussed her family's attempts to engage her in activities. She is tolerating Lexapro. Still circumstantial but more to the point. Physical Exam Psychiatric Orientation: alert and oriented x 3 Apperance: appropriately dressed and appropriately groomed Eye Contact: good eye contact Motor Behavior: no abnormal motor movements Speech: + abnormal rate/rhythm/volume of speech (hyperverbal but not pressured) Affect: euthymic affect Mood: + depressed mood Thought Process: + circumstantial thought process Thought Content: reality based without delusions Suicidal Thoughts: denies suicidal thoughts Homicidal Thoughts: denies homicidal thoughts Hallucinations: no auditory hallucinations and no visual hallucinations Cognition: attention grossly intact and language grossly intact Estimated Intelligence: consistent with education level Insight: + limited insight Judgement: + limited judgement Vital Signs (Past 24 Hours) Last Vital Signs Temp 36.8 C 10/20/22 06:36 Pulse 64 10/20/22 06:36 Resp 18 10/20/22 06:36 BP 121/79 10/20/22 06:36 Pulse Ox 98 10/17/22 19:22 O2 Del Method 10/17/22 19:22 Results & Data ([facility] [[email or web address] Current Inpatient Medications Current Inpatient Medications: Current Inpatient Medications Acetaminophen (Acetaminophen 325 Mg Tab) 650 mg PO Q4H PRN PRN Reason: Headache or Minor Fever Stop: 11/16/22 18:46 Al Hydrox/Mg Hydrox/Simethicone (Aluminum/Magnesium Susp 30 Ml Udc) 30 ml PO Q4H PRN PRN Reason: GI Upset Stop: 11/16/22 18:46 Bismuth Subsalicylate (Bismuth Subsalicylate Liqd 236 Ml) 15 ml PO PRN PRN PRN Reason: Loose Stool Stop: 11/16/22 18:46 Escitalopram Oxalate (Escitalopram Oxalate 10 Mg Tab) 5 mg PO QAM MATTHEW Stop: 11/17/22 13:59 Last Admin: 10/20/22 08:50 Dose: 5 mg Hydroxyzine HCl (Hydroxyzine Hcl 25 Mg Tab) 50 mg PO HSZ PRN PRN Reason: Insomnia Stop: 11/16/22 18:46 Hydroxyzine HCl (Hydroxyzine Hcl 25 Mg Tab) 25 mg PO Q4H PRN PRN Reason: Anxiety Stop: 11/16/22 18:46 Magnesium Hydroxide (Magnesium Hydroxide Susp 30 Ml Udc) 30 ml PO DAILY PRN PRN Reason: Constipation Stop: 11/16/22 18:46 Sodium Chloride (Sodium Chloride 0.65% Na Soln 45 Ml ([place])) 1 - 2 sprays NA PRN PRN PRN Reason: Nasal Dryness/Congestion Stop: 11/16/22 18:46 Vitamin D (Cholecalciferol 1,000 Units 25 Mcg Tab) 6,000 units PO QAM MATTHEW Stop: 11/18/22 17:29 Last Admin: 10/20/22 08:50 Dose: 6,000 units Mental Health & Subst Abuse Tx Psychiatrist Name of Psychiatrist: [facility] - Psychiatry and Therapy Intake Psychiatrist's Date of Appointment with Psychiatrist: 11/21/21 Time of Appointment with Psychiatrist: 11 AM Psychiatric Appointment Comment: This appointment will be over telehealth. Link will be sent via text. Webmaster Name of Webmaster: [facility] Phone Number for Webmaster: [phone] Case Management Appointment Comment: Please call to establish case management if interested. Post Discharge Appointments Primary Care Physician Name Of Family Doctor: [facility] Date of Appointment with PCP: 10/29/22 Time of Appointment with PCP: 10:45 AM arrival Provider Appointment Comment: [address], [place] [address] Contact Information Discharge Discharge Address: [address], [place] [address]
[2022-10-21] MEDS: ESCITALOPRAM OXALATE 10 MG TAB PO SCH (08:40)
[2022-10-21] MEDS: CHOLECALCIFEROL 1,000 UNITS 25 MCG TAB PO SCH (08:40)
--- NOTE | 2022-10-21 13:23 | Psychiatric Progress Note ---
Date of Service October 21, 2022 Impression / Recommendations Impression 62 yo female with 2 prior episodes of at least mild depression presents with 2 year decline in overall functioning, currently presents with vegetative symptoms and poor self care which are to a degree that could suggest psychotic features (none on exam) or disorganization related to cognitive disorder or pseudodementia (though not slowed). Bipolar depression remains in differential. 10/21/22: no evidence of virginie but remains quite circumstantial in conversation due to anxiety (1) Depression: Plan 10/21/22: finalize aftercare and safety planning. 10/20/22: continue current medication and treatment plan. 10/19/22: PCP f/u, start Vitamin D 6000 IU for 4-8 weeks then 1500 at discretion of outpatient provider, patient would rather meet with nutrition then start lipid lowering agent. 10/18/22: The patient was admitted to the [facility] ([facility] unit) on q15 min checks (behavioral with suicide precautions) for safety. The patient will participate in group, recreational, and milieu therapies and will be offered additional individual and family sessions as clinically appropriate. Risks/benefits/alternatives reviewed re: antidepressants for the treatment of depression and/or anxiety. The patient agreed to a trial of Lexapro 5 mg. Will check vitamin B12, D, folate levels as well as fasting metabolic labs given no recent PCP and possible need for Abilify augmentation depending on initial response to SSRI. Inventory Assets Strengths: intelligent, voluntary Needs: outpatient services, cognitive assessment Suicide Risk Level Suicide Risk Level: Moderate (q15 min suicide checks) Suicide Risk Level Comments: patient denies SI but is admit for severe depression and presents as disorganized. Risk Factors Assessment : Yes Do You Have Access To A Gun?: No Substance Use Disorders: No Previous Attempt: No Previous Psychiatric Hospitalization: No Protective Factors Assessment Employed: No Supportive Family: Yes Interval History Identifying Information ALEXEY LEE is a 62-year-old F who currently lives in [place], and was admitted on 10/17/22 18:47 on a 201 voluntary commitment for depression and poor self care. Chief Complaint "I was able to hum and laugh, do you think I'm manic?" Review of Systems Sleep Information Total Hours of Sleep: 6.5 Meal Information Percent Meal Consumed - Breakfast: 100 Percent Meal Consumed - Lunch: 80 Percent Meal Consumed - Dinner: 90 Subjective Subjective Patient was seen & assessed and interval progress reviewed with nursing and social work. participated in family meeting with daughter as well. Patient reports ongoing improvement in mood and motivation. She and daughter expressed concerns about possible hypomania in the past with elevated mood (no pressured speech, goal directed activity, sleep change other than less than when she is depressed). No restlessness here. They both endorsed some scattering in executive functioning at home/maintaining large house independently irrespectively of mood. Reviewed pros/cons of adding mood stabilizer now vs. monitoring and all agree would like remain on low dose of Lexapro. Discussed how to monitor for activation. Physical Exam Psychiatric Orientation: alert and oriented x 3 Apperance: appropriately dressed and appropriately groomed Eye Contact: good eye contact Motor Behavior: no abnormal motor movements Speech: + abnormal rate/rhythm/volume of speech (hyperverbal but not pressured) Affect: euthymic affect Mood: + depressed mood Thought Process: + circumstantial thought process Thought Content: reality based without delusions Suicidal Thoughts: denies suicidal thoughts Homicidal Thoughts: denies homicidal thoughts Hallucinations: no auditory hallucinations and no visual hallucinations Cognition: attention grossly intact and language grossly intact Estimated Intelligence: consistent with education level Insight: + fair insight Vital Signs (Past 24 Hours) Last Vital Signs Temp 36.5 C 10/21/22 06:33 Pulse 67 10/21/22 06:34 Resp 18 10/21/22 06:33 BP 133/87 10/21/22 06:34 Pulse Ox 98 10/17/22 19:22 O2 Del Method 10/17/22 19:22 Results & Data ([facility]) Current Inpatient Medications Current Inpatient Medications: Current Inpatient Medications Acetaminophen (Acetaminophen 325 Mg Tab) 650 mg PO Q4H PRN PRN Reason: Headache or Minor Fever Stop: 11/16/22 18:46 Al Hydrox/Mg Hydrox/Simethicone (Aluminum/Magnesium Susp 30 Ml Udc) 30 ml PO Q4H PRN PRN Reason: GI Upset Stop: 11/16/22 18:46 Bismuth Subsalicylate (Bismuth Subsalicylate Liqd 236 Ml) 15 ml PO PRN PRN PRN Reason: Loose Stool Stop: 11/16/22 18:46 Escitalopram Oxalate (Escitalopram Oxalate 10 Mg Tab) 5 mg PO QAM MATTHEW Stop: 11/17/22 13:59 Last Admin: 10/21/22 08:40 Dose: 5 mg Hydroxyzine HCl (Hydroxyzine Hcl 25 Mg Tab) 50 mg PO HSZ PRN PRN Reason: Insomnia Stop: 11/16/22 18:46 Hydroxyzine HCl (Hydroxyzine Hcl 25 Mg Tab) 25 mg PO Q4H PRN PRN Reason: Anxiety Stop: 11/16/22 18:46 Magnesium Hydroxide (Magnesium Hydroxide Susp 30 Ml Udc) 30 ml PO DAILY PRN PRN Reason: Constipation Stop: 11/16/22 18:46 Sodium Chloride (Sodium Chloride 0.65% Na Soln 45 Ml ([place])) 1 - 2 sprays NA PRN PRN PRN Reason: Nasal Dryness/Congestion Stop: 11/16/22 18:46 Vitamin D (Cholecalciferol 1,000 Units 25 Mcg Tab) 6,000 units PO QAM MATTHEW Stop: 11/18/22 17:29 Last Admin: 10/21/22 08:40 Dose: 6,000 units Mental Health & Subst Abuse Tx Psychiatrist Name of Psychiatrist: [facility] - Psychiatry and Therapy Intake Psychiatrist's Date of Appointment with Psychiatrist: 11/21/21 Time of Appointment with Psychiatrist: 11 AM Psychiatric Appointment Comment: This appointment will be over telehealth. Link will be sent via text. Meter Tester Name of Meter Tester: [facility] Phone Number for Meter Tester: [phone] Case Management Appointment Comment: Please call to establish case management if interested. Post Discharge Appointments Primary Care Physician Name Of Family Doctor: [facility] Date of Appointment with PCP: 10/29/22 Time of Appointment with PCP: 10:45 AM arrival Provider Appointment Comment: [address], [place] [address] Contact Information Discharge Discharge Address: [address], [place] [address]
[2022-10-22] MEDS: ESCITALOPRAM OXALATE 10 MG TAB PO SCH (08:55)
[2022-10-22] MEDS: CHOLECALCIFEROL 1,000 UNITS 25 MCG TAB PO SCH (08:56)
--- NOTE | 2022-10-22 09:52 | Discharge Summary ---
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 Well summarized by sw note: Patient stated for a while she was collecting stimulus checks and unemployment, but patient reports she currently doesn't have "much of an income." Pt could not elaborate on how she has been paying her bills. She states she has a "male friend" who lives in [place] and occasionally comes down to bring her groceries, and he will be taking care of her cats while she is in the hospital. She also has a daughter who flew in from [place] to help her, and a sister who lives in [place] who came into [facility] as well. Patient reports she has not been showering or brushing her teeth for months at a time, rarely changes out of pajamas/robe, and has not been leaving the house at all. Patient states she has virtually no appetite but then will eat a lot of chips and soda later in the day. She has not been engaging in anything that used to bring her harpal, such as going to a cafe, gardening, etc. Patient reports having limited local support, although she has 5 children (she states she is close with some of them but she is more estranged from her younger daughters, after her divorce about 15 years ago). She had an older dog who a couple of weeks ago, but patient states this was a relief because the dog was difficult for her to care for. She has a cat whose companionship she enjoys. Patient states her daughter helped her get medicaid recently, but she has no outpatient providers. Her daughter has talked with her about selling her house to help her pay her bills. The timeline of symptoms is confirmed by patient's daughter. It should be noted that another daughter used to live in [facility] but relocated to [facility] about 1-1.5 years ago. The patient had marked difficulty describing how iADLs get completed with her level of thought disorganization. She has had difficulty with racing thoughts during 2 previous periods of depression but denied any history of clement virginie other than elevated mood following her divorce. She had difficulty providing dates/number of years for certain aspects of history. Daughter reported to nursing that the house is in a poor state and patient indicated her daughter had taken her to an Air BnB. She does not identify her male friend as a partner and reports being estranged from her younger children, perhaps alluding to blaming self around the divorce (?infidelity). Physical Exam Psychiatric See admission H&P and DOD assessment. Vital Signs (Past 24 Hours) Last Vital Signs Temp 36.8 C 10/22/22 06:42 Pulse 103 H 10/22/22 06:43 Resp 16 10/22/22 06:42 BP 131/96 10/22/22 06:43 Pulse Ox 98 10/17/22 19:22 O2 Del Method 10/17/22 19:22 Principal Diagnosis major depressive disorder Psychiatric Data See daily stay summary. In short, safety was maintained and the patient was cooperative with care. Medication changes included a trial of Lexapro and they tolerated this well. A family session was held with the patient's daughter and safety plan was completed prior to discharge. Vitamin D deficiency was identified and the patient started supplementation and agrees to follow up with PCP for this as well as elevated total cholesterol. She is feeling better and plans to make better dietary choices. During her stay there was discussion about her fast speech and circumstantial thought processes. There was no evidence of virginie in that she was not restless and slept well. She attended to her ADLs and apparently has relied on others for most of adult life for assistance with iADLs (finances, driving, etc.). Her cognition will likely improve with ongoing treatment of her depression but if symptoms persist suggest neuropsychological testing. There was some suggestion about possible brief periods of elevated mood shifting out of past depressive episodes but she did not meet criteria for bipolar spectrum disorder. Discussed Abilify augmentation with she and daughter and the patient's declines this at this time but is willing to consider in future as an outpatient if needed. She did not require prns and declines at discharge. Day of Discharge Assessment Today the patient voices readiness for discharge. They note improvement in mood and deny thoughts to harm self or others. Thoughts remain circumstantial and they are improved from admission. There is no evidence of psychosis. They agree to take mediations as prescribed and keep follow-up appointments. They are stable for discharge to outpatient level of care. Transition of Care Transition Of Care Record: was reviewed with the patient Advance Directives Advance Directives Information Provided: Yes Advance Directives: No Mental Health Advance Directive: No Advance Directives on File: No Living Will: No Power of Intake Nurse: No Advance Directives Reason:: Declines as Mental Health Visit. Suicide Risk Level Suicide Risk Level Comments: Suicide risk at discharge is deemed low as the patient is no longer requiring 24-hr monitoring, has a safety plan, and is free of suicidal ideation at discharge. Risk Factors Assessment : Yes Do You Have Access To A Gun?: No Substance Use Disorders: No Previous Attempt: No Previous Psychiatric Hospitalization: No Protective Factors Assessment Employed: No Supportive Family: Yes Tobacco Cessation at Discharge Tobacco Cessation Medication Prescribed at Discharge: Not Applicable/Non-Smoker Total Time Total Time Spent: Greater Than 30 Minutes Total Time Includes: Examination of the patient, Discharge Planning and Medication Reconciliation Discharge Data Lab Results 10/17/22 10/17/22 10/17/22 14:33 14:33 14:49 WBC 7.80 RBC 4.31 Hgb 13.1 Hct 37.9 MCV 87.9 MCH 30.4 MCHC 34.6 RDW Std Deviation 39.2 RDW Coeff of Unique 12.1 Plt Count 233 MPV 12.3 Immature Gran % (Auto) 0.3 Neut % (Auto) 61.0 Lymph % (Auto) 29.1 [place] % (Auto) 7.6 Eos % (Auto) 1.4 Baso % (Auto) 0.6 Neut # (Auto) 4.76 Lymph # (Auto) 2.27 [place]orne # (Auto) 0.59 Eos # (Auto) 0.11 Baso # (Auto) 0.05 Immature Gran # (Auto) 0.02 Sodium Potassium Chloride Carbon Dioxide Anion Gap BUN Creatinine Est Cr Clr Drug Dosing Est GFR ( Amer) Est GFR (Non-Af Amer) BUN/Creatinine Ratio Glucose Fasting Glucose Calcium Total Bilirubin AST ALT Alkaline Phosphatase Total Protein Albumin Globulin Albumin/Globulin Ratio Triglycerides Cholesterol LDL Cholesterol, Calc VLDL Cholesterol, Calc HDL Cholesterol Cholesterol/HDL Ratio Vitamin B12 25-OH Vitamin D Total Folate TSH Urine Color Dark Yellow Urine Appearance Cloudy A Urine pH 5.0 Ur Specific [employer] 1.029 Urine Protein Trace H Urine Glucose (UA) Negative Urine Ketones 2+ H Urine Blood Negative Urine Nitrite Positive A Urine Bilirubin Negative Urine Urobilinogen Negative Ur Leukocyte Esterase 1+ H Urine WBC (Auto) >30 H Urine RBC (Auto) 5-10 H U Hyaline Cast (Auto) 1-5 U Epithel Cells (Auto) 10-20 H Urine Bacteria (Auto) 2+ H Urine Crystals Not Reportable Calcium Oxalate Crystal Present A Salicylates Urine Opiates Screen Neg Ur Methadone, Qual Neg Acetaminophen Urine Barbiturates Neg Ur Phencyclidine (PCP) Neg U Amphetamin/Meth Scrn Neg MDMA (Ecstasy) Screen Neg U Benzodiazepines Scrn Neg Ur Cocaine Metabolite Neg U Marijuana (THC) Screen Neg Ethyl Alcohol mg/dL SARS-CoV-2, RNA, NAAT 10/17/22 10/17/22 10/17/22 14:49 14:49 14:49 WBC RBC Hgb Hct MCV MCH MCHC RDW Std Deviation RDW Coeff of Unique Plt Count MPV Immature Gran % (Auto) Neut % (Auto) Lymph % (Auto) [place] % (Auto) Eos % (Auto) Baso % (Auto) Neut # (Auto) Lymph # (Auto) [place] # (Auto) Eos # (Auto) Baso # (Auto) Immature Gran # (Auto) Sodium 139 Potassium 3.5 Chloride 104 Carbon Dioxide 24 Anion Gap 11 BUN 17 Creatinine 0.74 Est Cr Clr Drug Dosing 71.8 Est GFR ( Amer) 101.3 Est GFR (Non-Af Amer) 87.4 BUN/Creatinine Ratio 23.0 H Glucose 99 Fasting Glucose Calcium 9.3 Total Bilirubin 0.7 AST 42 H ALT 51 Alkaline Phosphatase 91 Total Protein 7.6 Albumin 4.5 Globulin 3.1 Albumin/Globulin Ratio 1.5 Triglycerides Cholesterol LDL Cholesterol, Calc VLDL Cholesterol, Calc HDL Cholesterol Cholesterol/HDL Ratio Vitamin B12 25-OH Vitamin D Total Folate TSH 0.844 Urine Color Urine Appearance Urine pH Ur Specific [employer] Urine Protein Urine Glucose (UA) Urine Ketones Urine Blood Urine Nitrite Urine Bilirubin Urine Urobilinogen Ur Leukocyte Esterase Urine WBC (Auto) Urine RBC (Auto) U Hyaline Cast (Auto) U Epithel Cells (Auto) Urine Bacteria (Auto) Urine Crystals Calcium Oxalate Crystal Salicylates < 3.0 L Urine Opiates Screen Ur Methadone, Qual Acetaminophen < 3 L Urine Barbiturates Ur Phencyclidine (PCP) U Amphetamin/Meth Scrn MDMA (Ecstasy) Screen U Benzodiazepines Scrn Ur Cocaine Metabolite U Marijuana (THC) Screen Ethyl Alcohol mg/dL SARS-CoV-2, RNA, NAAT 10/17/22 10/17/22 10/19/22 14:49 14:49 07:29 WBC RBC Hgb Hct MCV MCH MCHC RDW Std Deviation RDW Coeff of Unique Plt Count MPV Immature Gran % (Auto) Neut % (Auto) Lymph % (Auto) [place] % (Auto) Eos % (Auto) Baso % (Auto) Neut # (Auto) Lymph # (Auto) [place] # (Auto) Eos # (Auto) Baso # (Auto) Immature Gran # (Auto) Sodium Potassium Chloride Carbon Dioxide Anion Gap BUN Creatinine Est Cr Clr Drug Dosing Est GFR ( Amer) Est GFR (Non-Af Amer) BUN/Creatinine Ratio Glucose Fasting Glucose 90 Calcium Total Bilirubin AST ALT Alkaline Phosphatase Total Protein Albumin Globulin Albumin/Globulin Ratio Triglycerides 92 Cholesterol 293 H LDL Cholesterol, Calc 218 VLDL Cholesterol, Calc 18 HDL Cholesterol 57 Cholesterol/HDL Ratio 5.1 H Vitamin B12 25-OH Vitamin D Total Folate TSH Urine Color Urine Appearance Urine pH Ur Specific [employer] Urine Protein Urine Glucose (UA) Urine Ketones Urine Blood Urine Nitrite Urine Bilirubin Urine Urobilinogen Ur Leukocyte Esterase Urine WBC (Auto) Urine RBC (Auto) U Hyaline Cast (Auto) U Epithel Cells (Auto) Urine Bacteria (Auto) Urine Crystals Calcium Oxalate Crystal Salicylates Urine Opiates Screen Ur Methadone, Qual Acetaminophen Urine Barbiturates Ur Phencyclidine (PCP) U Amphetamin/Meth Scrn MDMA (Ecstasy) Screen U Benzodiazepines Scrn Ur Cocaine Metabolite U Marijuana (THC) Screen Ethyl Alcohol mg/dL < 10.0 SARS-CoV-2, RNA, NAAT NEGATIVE 10/19/22 07:29 WBC RBC Hgb Hct MCV MCH MCHC RDW Std Deviation RDW Coeff of Unique Plt Count MPV Immature Gran % (Auto) Neut % (Auto) Lymph % (Auto) [place] % (Auto) Eos % (Auto) Baso % (Auto) Neut # (Auto) Lymph # (Auto) [place] # (Auto) Eos # (Auto) Baso # (Auto) Immature Gran # (Auto) Sodium Potassium Chloride Carbon Dioxide Anion Gap BUN Creatinine Est Cr Clr Drug Dosing Est GFR ( Amer) Est GFR (Non-Af Amer) BUN/Creatinine Ratio Glucose Fasting Glucose Calcium Total Bilirubin AST ALT Alkaline Phosphatase Total Protein Albumin Globulin Albumin/Globulin Ratio Triglycerides Cholesterol LDL Cholesterol, Calc VLDL Cholesterol, Calc HDL Cholesterol Cholesterol/HDL Ratio Vitamin B12 224 25-OH Vitamin D Total 8.7 L Folate 12.00 TSH Urine Color Urine Appearance Urine pH Ur Specific [employer] Urine Protein Urine Glucose (UA) Urine Ketones Urine Blood Urine Nitrite Urine Bilirubin Urine Urobilinogen Ur Leukocyte Esterase Urine WBC (Auto) Urine RBC (Auto) U Hyaline Cast (Auto) U Epithel Cells (Auto) Urine Bacteria (Auto) Urine Crystals Calcium Oxalate Crystal Salicylates Urine Opiates Screen Ur Methadone, Qual Acetaminophen Urine Barbiturates Ur Phencyclidine (PCP) U Amphetamin/Meth Scrn MDMA (Ecstasy) Screen U Benzodiazepines Scrn Ur Cocaine Metabolite U Marijuana (THC) Screen Ethyl Alcohol mg/dL SARS-CoV-2, RNA, NAAT Hospital Course (1) Depression: Plan 10/21/22: finalize aftercare and safety planning. 10/20/22: continue current medication and treatment plan. 10/19/22: PCP f/u, start Vitamin D 6000 IU for 4-8 weeks then 1500 at discretion of outpatient provider, patient would rather meet with nutrition then start lipid lowering agent. 10/18/22: The patient was admitted to the [facility] ([facility] mental health unit) on q15 min checks (behavioral with suicide precautions) for safety. The patient will participate in group, recreational, and milieu therapies and will be offered additional individual and family sessions as clinically appropriate. Risks/benefits/alternatives reviewed re: antidepressants for the treatment of depression and/or anxiety. The patient agreed to a trial of Lexapro 5 mg. Will check vitamin B12, D, folate levels as well as fasting metabolic labs given no recent PCP and possible need for Abilify augmentation depending on initial response to SSRI. Mental Health & Subst Abuse Tx Psychiatrist Name of Psychiatrist: [facility]acomo [facility] - Psychiatry and Therapy Intake Psychiatrist's Date of Appointment with Psychiatrist: 11/21/21 Time of Appointment with Psychiatrist: 11 AM Psychiatric Appointment Comment: This appointment will be over telehealth. Link will be sent via text. Candy Attendant Name of Candy Attendant: [facility] - Blended Case Management Phone Number for Candy Attendant: [phone] Case Management Appointment Comment: Please call to establish case management if interested. Post Discharge Appointments Primary Care Physician Name Of Family Doctor: [facility] Date of Appointment with PCP: 10/29/22 Time of Appointment with PCP: 10:45 AM arrival Provider Appointment Comment: [address] [place] [address] Smoking Cessation Counseling Tobacco Cessation Medication Prescribed at Discharge: Not Applicable/Non-Smoker Other #1: Name of Aftercare Appointment: [facility] Phone Number of Aftercare Appointment: [phone] Aftercare Appointment Comment: Please call for additional resources if interested. #2: Name of Aftercare Appointment: [facility] - [facility] Phone Number of Aftercare Appointment: [phone] Aftercare Appointment Comment: Call to arrange transportation for appts (no later than day before appt) Contact Information Discharge Discharge Address: [address] [place] [address] Discharge Plan Discharge Items Patient Disposition: Home - Self-Care Reason For Visit: DEPRESSIVE DISORDER Discharge Diagnosis: major depressive disorder Activity: Resume your previous activity Non-emergency contact: Primary Care Provider, Psychiatrist, Therapist and [employer] Call non-emergency contact if: you have any medication questions and your symptoms worsen Follow-up/Referrals: PCP,NO [Primary Care Provider] - Diet: Regular and Low Fat Addtl Attending Provider Instructions: SPECIAL CARE INSTRUCTIONS: 1. Follow through with your scheduled aftercare appointments. If unable to keep an appointment, please call to reschedule. 2. Take your medication only as prescribed. Medication should not be changed or stopped without the approval of your doctor. In the event of worsening symptoms or concerns about side effects, contact your doctor immediately. 3. Utilize new healthy coping skills, anger management skills, and stress management skills learned during your hospitalization. Journal feelings and process them with a support person. Identify stressors or situations that may result in relapse, deterioration or inappropriate behaviors and develop a plan to deal with those issues. 4. If your coping skills are ineffective and you are in crisis, contact your outpatient providers for direction. If unable to reach your providers, please call the [facility] CRISIS LINE AT , go to the [facility] walk-in center at [address], [address], [place], or go to the closest Emergency Room. 5. Avoid alcohol and un-prescribed drugs. 6. You have been provided with the Mental Health Advance Directives Pamphlet for your review. 7. Your condition is stable for discharge to outpatient level of care, but recovery is an ongoing process. Ifthoughts to harm yourself or others return, follow the safety plan developed during your stay. Planning for a safe return home includes securing weapons. Our treatment team recommends weaponsbe removed from the home until your outpatient provider reassesses your progress. In rare cases where the items themselvescannot be removed, guns and ammunitionshould be secured separatelyand keys stored by a reliable personoutside of the home. If you were admitted on an involuntary commitment, the police or other legal authorities may be involved in this process. AFTERCARE APPOINTMENTS: * Please call your insurance company prior to your scheduled appointment to confirm your aftercare providers are covered. Take your insurance information to your appointments. WHO TO CALL AND WHEN: Medical Emergencies: For questions or emergencies related to your hospital stay, please contact the Inpatient Behavioral Health Unit at [phone]. A twill cutter is on-call 25/05 for the Behavioral Health Unit for emergencies At any time you feel your situation is an emergency, you may also call 911 immediately. Pending Studies at Discharge: No Stand-Alone Forms: My [facility], Smoking Cessation Medications and DC Order Prescriptions: New escitalopram oxalate 5 mg tablet 5 mg PO QAM Qty: 30 0RF cholecalciferol (vitamin D3) 125 mcg (5,000 unit) capsule 5,000 unit PO QAM Qty: 30 0RF Discharge Orders: Discharge Order (Routine); Ordered 10/22/22 Ordered By: Sandy Bonner Admission Data Admit Date/Time: 10/17/22 18:47 Attending Provider: Sandy Bonner Admit Provider: Sandy Bonner Primary Care Provider: PCP,NO Other Interventions: PSY Interdisciplinary Discharge Planning Last Done: 10/20/22 15:03 Coding Level of Care Code 33957 D/C day mgmt > 30 min Diagnoses Depression F32.A
== END 2022-10-22 15:15 | disposition home or self-care (01) | DRG 881 ==
LOC: ED 14:31 → 3S 18:47